=== PATIENT | female | born 1945 | race Caucasian/White ===

== ENCOUNTER 2023-04-03 14:42 | Outpatient (CLI) | payer MEDICARE | END 2023-04-03 14:43 | disposition home or self-care (01) | LOC: MADRAD 14:42 | PROVIDERS: ATTEND Registered Nurse | DX: R05.1 Acute cough (principal) | CPT/HCPCS: 71046 ==

== ENCOUNTER 2023-09-04 11:15 | Outpatient (CLI) | payer MEDICARE | END 2023-09-04 11:16 | disposition home or self-care (01) | LOC: MADRAD 11:15 | PROVIDERS: ATTEND Nurse Practitioner Family | DX: R05.1 Acute cough (principal) | CPT/HCPCS: 71046 ==